=== PATIENT | female | born 1975 | race Caucasian/White ===

== ENCOUNTER 2018-08-23 09:57 | Inpatient (IN) ==
[2018-08-23] MEDS ORDERED: KETOROLAC 15 MG/1 ML VIAL IVP ONE (10:16)
[2018-08-23] MEDS ORDERED: ONDANSETRON 4 MG/2 ML VIAL IVP ONE (10:16)
[2018-08-23] MEDS ORDERED: Sodium Chloride 0.9% 1,000 ML PRIMARY IV ONE (10:16)
--- NOTE | 2018-08-23 10:40 | PDOC ---
General Adult HPI - General Chief Complaint: Chest Pain Stated Complaint: chest pain Date Seen by Provider: 08/23/18 Time Seen by Provider: 10:10 Source: POSITIVE: Patient Exam Limitations: POSITIVE: No limitations Nurse's Notes Reviewed & Considered: Yes - History of Present Illness Initial Comment: The patient is a 42-year-old female who presents to the emergency department from the walk-in clinic with complaints of left flank pain and hematuria. She reports that around [place] time she had developed symptoms of painful urination and foul-smelling urine. Over the past several weeks she has had progressively worsening pain in the left flank region. She has continued dysuria and this morning noticed some blood in the urine. She denies any fever although she states that she "never runs a fever when she has infection". The pain over the last day or so has significantly worsened. She denies any current nausea or vomiting. She has had previous complete hysterectomy. She does have some intermittent pain in the lower pelvis as well. The patient reports that she does have a history of atrial fibrillation and is currently off flecinide and Xarelto as per her [employer]. She reports that she is currently having some pain in her chest which is not unusual for her. The pain in her chest is not significantly worsened with taking a deep breath however the pain in the left flank area is worsened with taking a deep breath. Have you received a tetanus shot in the past 10 years?: Yes - Patient Home Medications Home Medications: Home Medications clonazepam 0.5 mg tablet 0.5 mg PO QHS PRN #30 tab 08/12/18 - Patient Allergies Allergies/Adverse Reactions: Allergies Allergy/AdvReac Type Severity Reaction Status Date / Time No Known Drug Allergies Allergy NO KNOWN Verified 08/23/18 10:33 ALLERGIES Past Medical History - heen HEENT History: Denies History Cardiovascular History: Arrhythmia, Other (please comment) Additional Cardiovasular History: CHILDHOOD MURMUR, a fib Respiratory History: Pneumonia, Other (please comment) Additional Respiratory History: BRONCHITIS 05/26 Gastrointestinal History: Irritable Bowel Syndrome, Celiac Disease Additional Gastrointestinal History: CELIAC DISEASE, ULCERS. Genitourinary History: Recurrent UTI Additional Genitourinary History: 12/05/12 CURRENTLY BEING TX'D FOR UTI Endocrine History: Gestational Diabetes, Other (please comment) Additional Endocrine History: INSULIN RESISTANCE Musculoskeletal History: Other (please comment) Prosthesis or Implant: No Additional Musculoskeletal History: L FOOT FRACTURE, BILATERAL LOWER LEG FRACTURES BELOW THE KNEE OCTOBER 2015 Neurological History: Migraines, Frequent Headaches Additional Neurological History: LEFT OCCIPITAL BLOCK FOR MIGRAINE, MEDISTEINAL MASS DX 03/2014 Blood Disorders: Denies History Psychiatric History: Depression, Anxiety Disorders, PTSD History of Sexually Transmitted Diseases: No Cancer History: Denies History History of MDRO: No History of Other Communicable Diseases: No History of Exposure to Communicable Disease: No Alcohol Use: Other In the Past 12 Months, Have Used or Abuse Any Substance: Marijuana Previous Surgical History: Yes Type / Date of Surgery: as above (SALEEM/BSO). lymph node biopsy left posterior cervical area. Colonoscopy/EGD 10/2011. TONSILLECTOMY, ADENOIDECTOMY, LEFT LUMPECTOMY Anesthesia Reactions: No Malignant Hyperthermia: No Significant Family History: Cancer Past Medical History Reviewed: Reviewed - No Changes ROS - Limitations ROS Limitations: No Limitations Constitution: REPORTS: Chills. DENIES: Fever Cardiovascular: REPORTS: Chest Pain (She reports intermittent chest pain chronically and does have some pain currently). DENIES: Heart Palpitations, Edema Respiratory: REPORTS: Hurts To Breathe (Primarily in the left flank region). DENIES: Cough Non Productive, Cough Productive, Shortness Of Breath Neurological: REPORTS: Denies Neuro Symptoms Gastrointestinal: DENIES: Vomitting Musculoskeletal: DENIES: Lower Extremity Swelling Genitourinary: REPORTS: Dysuria, Flank Pain (Left flank pain), Hematuria Eyes: REPORTS: Denies Symptoms ENT: REPORTS: Denies Symptoms Skin: DENIES: Rash General Adult Exam - General Appearance General Appearance: POSITIVE: Alert, Cooperative, No Acute Distress - HEENT HEENT: POSITIVE: Head Inspection Nml, Eyes Inspection Nml, Ears Inspection Nml, Nose Inspection Nml, Pharynx Inspect. Nml - Neck Neck: POSITIVE: Normal Inspection. NEGATIVE: Lymphadenopathy - Respiratory Respiratory: POSITIVE: No Respiratory Distress, Breath Sounds Normal - Cardiovascular Cardiovascular: POSITIVE: Regular Rate & Rhythm, No Murmur Peripheral Pulses: Dorsalis-pedis (R): 2+, Dorsalis-pedis (L): 2+ - Abdomen Abdomen: Soft: (All Quadrants), Denies Tenderness: (All Quadrants), No Palpabale Mass: (All Quadrants) - Back Back: POSITIVE: CVA Tenderness (Left side) - Skin Skin: POSITIVE: Normal Color, No Rash - Extremities Extremity: Normal ROM: (All Extremities), Normal Inspection: (All Extremities) General Adult Progress - Results Reviewed by me Xrays/CTs/US Reviewed by me: Yes Discussed with Radiologist: Yes Radiology Findings: CT of the abdomen and pelvis without IV contrast shows no obstructive uropathy or kidney stone per radiologist. Chest x-ray is also read as normal per radiologist. Lab Results Reviewed by Me: Yes Lab Results:: Laboratory Results 08/23/18 08/23/18 08/23/18 10:25 10:25 10:25 WBC 15.19 H RBC 4.90 Hgb 14.2 Hct 42.1 MCV 85.9 MCH 29.0 MCHC 33.7 RDW Std Deviation 44.6 RDW Coeff of Fadi 14.4 Plt Count 328 MPV 10.9 Immature Gran % (Auto) 0.1 Neut % (Auto) 85.9 H Lymph % (Auto) 9.9 L [place] % (Auto) 3.8 L Eos % (Auto) 0.1 Baso % (Auto) 0.2 Immature Gran # (Auto) 0.02 Neut # (Auto) 13.05 Lymph # (Auto) 1.51 [place] # (Auto) 0.57 Eos # (Auto) 0.01 Baso # (Auto) 0.03 WBC Morphology Comment Normal morphology Plt Morphology Comment Normal morphology RBC Morph Comment Normal morphology D-Dimer 0.26 Sodium 142 Potassium 3.9 Chloride 108 Carbon Dioxide 23 Anion Gap 11 BUN 13 Creatinine 0.6 Estimated GFR > 60 BUN/Creatinine Ratio 21.66 H Glucose 94 Calculated Osmolality 293.0 H Lactic Acid Calcium 9.5 Total Bilirubin 0.7 AST 21 ALT 29 Alkaline Phosphatase 65 CK-MB (CK-2) Troponin I C-Reactive Protein 0.7 Total Protein 7.4 Albumin 4.7 Globulin 2.7 Albumin/Globulin Ratio 1.70 08/23/18 08/23/18 10:25 10:25 WBC RBC Hgb Hct MCV MCH MCHC RDW Std Deviation RDW Coeff of Fadi Plt Count MPV Immature Gran % (Auto) Neut % (Auto) Lymph % (Auto) [place] % (Auto) Eos % (Auto) Baso % (Auto) Immature Gran # (Auto) Neut # (Auto) Lymph # (Auto) [place] # (Auto) Eos # (Auto) Baso # (Auto) WBC Morphology Comment Plt Morphology Comment RBC Morph Comment D-Dimer Sodium Potassium Chloride Carbon Dioxide Anion Gap BUN Creatinine Estimated GFR BUN/Creatinine Ratio Glucose Calculated Osmolality Lactic Acid 1.1 Calcium Total Bilirubin AST ALT Alkaline Phosphatase CK-MB (CK-2) 0.47 Troponin I < 0.012 C-Reactive Protein Total Protein Albumin Globulin Albumin/Globulin Ratio CBC and BMP: 08/23/18 10:25 08/23/18 10:25 - Patient's Progress MDM / ED Course: The urine dip from the clinic did show large leukocytes and large blood. Microscopic evaluation here reveals greater than 100 PVCs and greater than 100 RBCs in the urine. The patient is rating her pain an 8 out of 10 primarily in the left flank region. Because of her complaint of chest pain and EKG was done which shows normal sinus rhythm with no acute ST segment or T-wave changes. She states that it is not uncommon for her to have chest pain which has been ongoing for quite some time. An IV was established, blood cultures and lactate were drawn with IV start. She did receive a 1 L bolus of normal saline as well as Toradol 15 mg IV, fentanyl 50 g IV and Zofran 4 mg IV for pain. She initially had some minimal pain relief however had recurrence of pain and required a second dose of fentanyl. At that point she rated her pain about a 5 out of 10. Her blood work reveals an elevated white count at 15,000. The remainder of her blood work is essentially unremarkable. She has normal troponin and normal d- dimer. Chest x-ray showed normal heart size and normal lung queen. CT scan of the abdomen and pelvis without IV contrast showed no obstructive uropathy or kidney stone. She did receive a dose of Rocephin 1 g IV. Current findings were discussed with the patient. Treatment options were discussed including outpatient versus inpatient management. At this time the patient was concerned about absorbing medications orally which she has had problems with with in the p ast and she would prefer to at least initially be treated in the hospital. I subsequently spoke with Dr. Kim and he has agreed to admit the patient for further treatment. - Consult Counseled: POSITIVE: Patient, Family, RE: Lab Results, RE: Radiology Results, R E: DX Patient Care Time - Estimated PCT Patient Care Time (In Minutes): 30 Vital Signs - Recent Vital Signs Vital Signs: Vital Signs (Last 8 hours) Temp Pulse Pulse Resp BP Pulse Ox 08/23/18 10:35 98 F 103 H 103 H 18 148/112 98 - VS Reviewed Vital Signs Reviewed: Yes Discharge Clinical Impression: Chest pain, Pyelonephritis Discharge Disposition: Admit to Inpatient Condition: Stable Follow Up With: ALLIE OLSEN [Primary Care Provider] - Date Decision to Admit to Inpatient: 08/23/18 Time Decision to Admit to Inpatient: 12:50
[2018-08-23] MEDS: fentaNYL Inj 100 MCG/2 ML VIAL IVP ONE ×2 (10:56→12:00)
[2018-08-23 10:58] LABS: BASOPHILS # (AUTO) 0.03 10*3/UL; BASOPHILS % (AUTO) 0.2 % (0-1); EOSINOPHILS # (AUTO) 0.01 10*3/UL; EOSINOPHILS % (AUTO) 0.1 % (0-8); Hematocrit [HCT] 42.1 % (37.0-47.0); Hemoglobin [HGB] 14.2 g/dL (12.0-16.0); LYMPHOCYTES # (AUTO) 1.51 10*3/uL; MEAN CORPUSCULAR HGB CONC 33.7 g/dL (33-37); MEAN CORPUSCULAR VOLUME 85.9 FL (81-99); MEAN PLATELET VOLUME 10.9 FL (7.4-12.2); MONOCYTES # (AUTO) 0.57 10*3/UL (0.3-0.8); MONOCYTES % (AUTO) 3.8 % (5-15); NEUTROPHILS # (AUTO) 13.05 10*3/UL; NEUTROPHILS % (AUTO) 85.9 % (50-80)
[2018-08-23 11:06] LABS: BLOOD UREA NITROGEN 13 mg/dL (7-22); BUN/CREATININE RATIO 21.66 (6-20); SERUM ALBUMIN 4.7 g/dL (3.5-4.8)
[2018-08-23 11:13] LABS: PLATELET MORPHOLOGY COMMENT NORMAL MORPHOLOGY (NORM); RBC MORPHOLOGY COMMENT NORMAL MORPHOLOGY (NORM); WBC MORPHOLOGY COMMENT NORMAL MORPHOLOGY (NORM)
--- NOTE | 2018-08-23 11:16 | DI ---
XR CXR 1VW 08/23/2018 10:16 AM HISTORY: [facility] [place] ^Chest Pain Comparison: 06/25/2018. Findings: A single AP view of the chest demonstrates normal aeration without focal consolidation. The re is no pneumothorax or pleural effusion. The cardiomediastinal silhouette is normal in size and con tour. The osseous structures are normal for age. Impression: No radiographic evidence of acute cardiopulmonary process.
[2018-08-23] MEDS ORDERED: cefTRIAXone Inj 1 GM in Sodium Chloride 0.9% 100 ML IV ONE (11:40)
[2018-08-23] MEDS ORDERED: fentaNYL Inj 100 MCG/2 ML VIAL IVP ONE (11:47)
--- NOTE | 2018-08-23 12:13 | DI ---
CT Abdomen/Pelvis WO Contrast 08/23/2018 11:12 AM [place] [facility] [place] pain and hematuria Comparison: CT abdomen/pelvis 07/04/2018. Technique: Imaging was performed with a multi-detector CT scanner. Data acquisition was obtained from the dome of the diaphragm through the pubic symphysis without oral or intravenous contrast material. Multiplanar reformations were performed. Findings: There are no renal, ureteral, or bladder stones identified. No hydronephrosis or perinephri c stranding. An indistinct hypoattenuating lesion in the posterior aspect of the right lobe of the liver was demetria r demonstrated on prior contrast-enhanced imaging. Further evaluation of the abdomen shows normal CT appearance of the visualized portions of the spleen, gallbladder, adrenal glands, and pancreas. Hollo w viscus organs demonstrate normal course and caliber. The appendix is unremarkable. Vascular structu res are intact. The uterus is absent. The adnexa are unremarkable, though better evaluated with pelvi c ultrasound. There is no free intraperitoneal air or fluid. The lung bases are clear. The osseous structures are within normal limits for age. Impression: 1. No urolithiasis or CT evidence of obstructive uropathy.
[2018-08-23 13:27] LABS: AMPHETAMINE SCREEN NEGATIVE (NEG); CANNABINOID SCREEN,URINE POSITIVE (NEG); COCAINE SCREEN NEGATIVE (NEG); METHADONE URINE SCREEN NEGATIVE (NEG); METHAMPHETAMINES SCREEN,URINE NEGATIVE (NEG); OPIATE SCREEN,URINE NEGATIVE (NEG); URINE SAMPLE TYPE UCC; URINE SPECIFIC GRAVITY - MAN 1.008
[2018-08-23] MEDS ORDERED: ACETAMINOPHEN 325 MG TABLET PO PRN (13:30)
[2018-08-23] MEDS ORDERED: ONDANSETRON 4 MG/2 ML VIAL IVP PRN (13:30)
[2018-08-23] MEDS ORDERED: DOCUSATE 100 MG CAPSULE PO PRN (13:30)
[2018-08-23] MEDS ORDERED: LIDOCAINE W/ SODIUM BICARB 0.5 ML SYR SUBD PRN (13:30)
[2018-08-23] MEDS ORDERED: CALCIUM CARBONATE 500 MG (TUMS) CHEWABLE TABLET PO PRN (13:30)
[2018-08-23] MEDS: Sodium Chloride 0.9% 1,000 ML PRIMARY IV SCH ×2 (14:13→22:12)
--- NOTE | 2018-08-23 14:38 | PDOC ---
HPI - History of Present Illness Date of Service: 08/23/18 Time of Service: 14:32 Chief Complaint: Left flank pain and blood in urine History of Present Illness: This very pleasant 42-year-old female who has had prior urinary tract infections due to Escherichia coli, anxiety disorder, and apparently osteoporosis, who comes in stating that she's had left flank pain for about a month now. Just after [place], she saw her primary care physician and at that time she had a urinalysis that was negative in the clinic. She states that she's been on antibiotics such as penicillin for a recent tooth infection but has made no change in her left flank pain. She states that she has had increased urinary frequency. This morning she had blood in the urine and she came in for evaluation and was found to have a urinalysis consistent with urinary tract infection. A noncontrast CT scan of the abdomen and pelvis was negative per radiology read. No evidence of obstructive uropathy was noted. She states the pain in her left flank has been radiating into her groin region on the left side. She has never had a kidney stone before. She denies any fevers but states even when she had urosepsis in the past she did not have fever. She denies any vomiting but has had some nausea and states that she has lost her appetite recently. No other interventions of been tried. The condition continually got worse with blood developing in the urine which is why she came in for evaluation today. A urinalysis was done at the clinic and the patient h ad positive findings for hematuria, pyuria, and bacteria present. Past Medical History Medical History: 1. Admits to smoking marijuana. 2. Intermittent atrial fibrillation diagnosed in [place], was on flecainide and Xarelto, following cardiology here and off medications pending evaluation. 3. Osteoporosis. 4. Anxiety disorder Surgical History: 1. hysterectomy with bilateral salpingo-oophorectomy. 2. Breast lumpectomy, benign. 3. Lymph node biopsy Pertinent Family History: Significant for coronary artery disease on the mother's side of the family Past Social History: Does not smoke tobacco, does smoke marijuana. Does not drink alcohol. . Has 2 children that are described as healthy. Tobacco Use: Never Smoker Do you dip or chew tobacco: No In the Past 12 Months, Have Used or Abuse Any of the Following Substance: Marijuana Alcohol Use: None Medication / Allergies Home Medications: Home Medications Medication Instructions Recorded Confirmed Type clonazepam 0.5 mg tablet 0.5 mg PO QHS PRN #30 tab 08/12/18 08/23/18 Rx Allergies/Adverse Reactions: Allergies Allergy/AdvReac Type Severity Reaction Status Date / Time No Known Drug Allergies Allergy NO KNOWN Verified 08/23/18 10:33 ALLERGIES Review of Systems - Review of Systems All Systems: Reviewed & No Additional Complaints Except as Stated (I did a 12 point review systems and it was negative other than that discussed below and in the history of present illness.) - Constitutional Constitutional: REPORTS: Other (Decreased appetite) - Gastrointestinal Gastrointestinal / Abdominal: REPORTS: Nausea - Genitourinary Genitourinary: REPORTS: Burning, Hematuria, Urgency - Musculoskeletal Musculoskeletal: REPORTS: Other (States she has osteoporosis and is on vitamin D and is been on Fosamax in the past although she is off of that now. She also states that she tripped over her dog bone recently and has right foot and right ankle pain, ankle pain is lateral. And anterior.) Exam - Vitals Vital Signs: Vital Signs Temperature 98 F Temperature Source Temporal Artery Scan Pulse Rate [Bilateral Radial] 103 Pulse Rate 103 Respiratory Rate 16 Blood Pressure [Left Arm] 148/112 Pulse Ox 97 Oxygen Delivery Method Room Air Height 5 ft 6 in Weight 115 lb 2 oz - General General Appearance: No Acute Distress, Cooperative, Thin - Head Head Exam: Normal Inspection, Normocephalic, Atraumatic - Eye Eye Exam: POSITIVE: No Scleral Icterus - ENT ENT Exam: POSITIVE: Mucous Membranes Moist - Neck Neck Exam: Normal Inspection, No Tenderness, No Lymphadenopathy, No Thyromegaly, JVP is not Raised - Respiratory Respiratory Exam: POSITIVE: Clear to Auscultation - Bilaterally, Breathing Non Labored, Normal to Percussion and Palpation - Cardiovascular Cardiovascular Exam: POSITIVE: No Murmur, No Clicks, No Gallops, No Rubs, Tachycardia, No JVD - GI/Abdominal GI/Abdominal Exam: POSITIVE: Normal Bowel Sounds, Non Tender, Non Distended, Soft - Rectal Rectal Exam: POSITIVE: Deferred - External Exam: POSITIVE: Deferred Exam: POSITIVE: Deferred - Extremities Extremities Exam: POSITIVE: No Clubbing Present, No Edema Present, No Cyanosis Present - Back Back Exam: POSITIVE: CVA Tenderness (L) - Neurological Neurological Exam: POSITIVE: Alert, Oriented x 3, No Facial Droop, Speech Intact / Clear, Moves All Extremities Equally - Psychiatric Psychiatric Exam: POSITIVE: Normal Affect, Normal Mood Results - Labs CBC and BMP: 08/23/18 10:25 08/23/18 10:25 Additional Lab Results: Laboratory Results 08/23/18 08/23/18 08/23/18 10:00 10:25 10:25 WBC 15.19 H RBC 4.90 Hgb 14.2 Hct 42.1 MCV 85.9 MCH 29.0 MCHC 33.7 RDW Std Deviation 44.6 RDW Coeff of Fadi 14.4 Plt Count 328 MPV 10.9 Immature Gran % (Auto) 0.1 Neut % (Auto) 85.9 H Lymph % (Auto) 9.9 L [place] % (Auto) 3.8 L Eos % (Auto) 0.1 Baso % (Auto) 0.2 Immature Gran # (Auto) 0.02 Neut # (Auto) 13.05 Lymph # (Auto) 1.51 [place] # (Auto) 0.57 Eos # (Auto) 0.01 Baso # (Auto) 0.03 WBC Morphology Comment Normal morphology Plt Morphology Comment Normal morphology RBC Morph Comment Normal morphology D-Dimer 0.26 Sodium Potassium Chloride Carbon Dioxide Anion Gap BUN Creatinine Estimated GFR BUN/Creatinine Ratio Glucose Calculated Osmolality Lactic Acid Calcium Total Bilirubin AST ALT Alkaline Phosphatase CK-MB (CK-2) Troponin I C-Reactive Protein Total Protein Albumin Globulin Albumin/Globulin Ratio Ur Collection Type Ucc U Specif Grav (Refrac) 1.008 Urine Opiates Screen Negative Ur Buprenorphine Negative Ur Oxycodone Screen Negative Urine Methadone Screen Negative Ur Propoxyphene Screen Negative Barbiturate Screen Negative U Tricyclic Antidepress Negative Phencyclidine Screen Negative Amphetamines Screen Negative U Methamphetamines Scrn Negative Benzodiazepines Screen Negative Cocaine Screen Negative U Marijuana (THC) Screen Positive H 3 08/23/18 08/23/18 08/23/18 10:25 10:25 10:25 WBC RBC Hgb Hct MCV MCH MCHC RDW Std Deviation RDW Coeff of Fadi Plt Count MPV Immature Gran % (Auto) Neut % (Auto) Lymph % (Auto) [place] % (Auto) Eos % (Auto) Baso % (Auto) Immature Gran # (Auto) Neut # (Auto) Lymph # (Auto) [place] # (Auto) Eos # (Auto) Baso # (Auto) WBC Morphology Comment Plt Morphology Comment RBC Morph Comment D-Dimer Sodium 142 Potassium 3.9 Chloride 108 Carbon Dioxide 23 Anion Gap 11 BUN 13 Creatinine 0.6 Estimated GFR > 60 BUN/Creatinine Ratio 21.66 H Glucose 94 Calculated Osmolality 293.0 H Lactic Acid 1.1 Calcium 9.5 Total Bilirubin 0.7 AST 21 ALT 29 Alkaline Phosphatase 65 CK-MB (CK-2) 0.47 Troponin I < 0.012 C-Reactive Protein 0.7 Total Protein 7.4 Albumin 4.7 Globulin 2.7 Albumin/Globulin Ratio 1.70 Ur Collection Type U Specif Grav (Refrac) Urine Opiates Screen Ur Buprenorphine Ur Oxycodone Screen Urine Methadone Screen Ur Propoxyphene Screen Barbiturate Screen U Tricyclic Antidepress Phencyclidine Screen Amphetamines Screen U Methamphetamines Scrn Benzodiazepines Screen Cocaine Screen U Marijuana (THC) Screen 06/29/16 08/23/18 08/23/18 10:59 09:51 10:00 Urine Ketones Trace Urine Occult Blood Large Urine Nitrate Negative Ur Leukocyte Esterase Large Urine RBC >100 A Urine WBC >100 H Urine Bacteria Many H Ur Culture Indicated? Culture set - Imaging Status: Image Reviewed by Me (I looked at the chest x-ray and it appears negative on my view for acute cardiac pulmonary disease process. I looked at the abdominal CT scan. I felt the left kidney was slightly enlarged versus the right. No IV contrast was used so I cannot see any perinephric stranding.) Assessment and Plan - Patient Problems (1) Pyelonephritis Current Visit: Yes Status: Acute Code(s): N12 - Tubulo-interstitial nephritis, not specified as acute or chronic (2) Acute cystitis Current Visit: Yes Status: Acute Code(s): N30.00 - Acute cystitis without hematuria Qualifiers: Hematuria presence: with hematuria Qualified Code(s): N30.01 - Acute cystitis with hematuria (3) Poor appetite Current Visit: No Status: Chronic Code(s): R63.0 - Anorexia (4) Marijuana abuse Current Visit: Yes Status: Acute Code(s): F12.10 - Cannabis abuse, unc omplicated - Assessment / Plan Additional Assessment/Plan Details: admit for observation IV fluids, IV rocephin urine culture pending labs in AM pain medicines for left flank pain antiemetics when necessary Given right foot pain, and recent trip over her dog bone at home, x-ray right foot and right ankle. She isolates her pain on her right foot and right ankle Full code. Plan above discussed with patient and [id number]. They all agree with the plan.
--- NOTE | 2018-08-23 15:08 | DI ---
XR ANKLE 2VW 08/23/2018 2:31 PM H[place]ORY: [facility] [place] ankle pain Comparison: None. Findings: AP and lateral views of the right ankle show normal anatomic alignment without fracture or dislocation. The ankle mortise and talar dome are intact. No significant arthritic change is detected . There is no significant soft tissue swelling. No ankle joint effusion is present. Impression: No acute osseous abnormality or significant arthritic change.
--- NOTE | 2018-08-23 15:09 | DI ---
XR FOOT 2VW 08/23/2018 2:31 PM HISTORY: [facility] – [place] ^right foot pain Comparison: None. Findings: AP, lateral, and oblique views of the right foot show normal anatomic alignment without fra cture or dislocation. There is no significant arthritic change. The soft tissue structures are unrem arkable. Impression: 1. No acute osseous abnormality or significant arthritic change.
[2018-08-23] MEDS ORDERED: ClonazePAM Tab 1 MG TABLET PO PRN (15:30)
[2018-08-23] MEDS: HYDROmorphone 2 MG/1 ML IVP PRN ×3 (16:24→22:15)
[2018-08-23] MEDS: KETOROLAC 15 MG/1 ML VIAL IVP PRN (17:48)
[2018-08-23] MEDS: HYDROcodone-APAP 5 MG -325 MG TABLET PO PRN (22:11)
[2018-08-24] MEDS: KETOROLAC 15 MG/1 ML VIAL IVP PRN (00:33)
[2018-08-24 04:56] LABS: BASOPHILS # (AUTO) 0.03 10*3/UL; BASOPHILS % (AUTO) 0.4 % (0-1); EOSINOPHILS # (AUTO) 0.18 10*3/UL; EOSINOPHILS % (AUTO) 2.1 % (0-8); Hematocrit [HCT] 34.3 % (37.0-47.0); Hemoglobin [HGB] 11.3 g/dL (12.0-16.0); LYMPHOCYTES # (AUTO) 3.14 10*3/uL; MEAN CORPUSCULAR HEMOGLOBIN 28.6 PG (27-31); MEAN CORPUSCULAR HGB CONC 32.9 g/dL (33-37); MEAN CORPUSCULAR VOLUME 86.8 FL (81-99); MEAN PLATELET VOLUME 10.7 FL (7.4-12.2); MONOCYTES # (AUTO) 0.53 10*3/UL (0.3-0.8); MONOCYTES % (AUTO) 6.3 % (5-15); NEUTROPHILS # (AUTO) 4.48 10*3/UL; NEUTROPHILS % (AUTO) 53.5 % (50-80); RED BLOOD COUNT 3.95 10^6/uL (4.20-5.40)
[2018-08-24] MEDS: HYDROmorphone 2 MG/1 ML IVP PRN ×2 (05:05→09:16)
[2018-08-24] MEDS: Sodium Chloride 0.9% 1,000 ML PRIMARY IV SCH ×3 (05:08→23:06)
[2018-08-24 05:14] LABS: BLOOD UREA NITROGEN 6 mg/dL (7-22)
[2018-08-24 05:42] LABS: PLATELET MORPHOLOGY COMMENT NORMAL MORPHOLOGY (NORM); RBC MORPHOLOGY COMMENT NORMAL MORPHOLOGY (NORM); WBC MORPHOLOGY COMMENT NORMAL MORPHOLOGY (NORM)
[2018-08-24] MEDS: HYDROcodone-APAP 5 MG -325 MG TABLET PO PRN (07:43)
[2018-08-24] MEDS ORDERED: oxyCODONE/APAP 7.5/325 Tab 1 TAB TAB PO PRN (10:54)
[2018-08-24] MEDS ORDERED: HYDROmorphone 2 MG/1 ML IVP PRN ×2 (10:55→11:13)
[2018-08-24] MEDS: cefTRIAXone Inj 2 GM in Sodium Chloride 0.9% 100 ML IV SCH (12:06)
[2018-08-24] MEDS: Prochlorperazine Edisylate Inj 10mg/2ml vial IVP PRN ×2 (12:07→18:45)
[2018-08-24] MEDS: oxyCODONE/APAP 7.5/325 Tab 1 TAB TAB PO PRN ×2 (12:07→18:45)
--- NOTE | 2018-08-24 15:43 | PDOC(PROG) ---
Date of Service: 08/24/18 Time of Service: 09:00 Interval History: still has left flank pain, but better. worsened nausea and vomiting. no chest pain, no SOB. initially lab is showing gram negative rods. Objective : Data - Labs CBC and BMP: 08/24/18 04:30 08/24/18 04:30 Assessment and Plan - Patient Problems (1) Pyelonephritis Current Visit: Yes Status: Acute Code(s): N12 - Tubulo-interstitial nephrit is, not specified as acute or chronic (2) Acute cystitis Current Visit: Yes Status: Acute Code(s): N30.00 - Acute cystitis without hematuria Qualifiers: Hematuria presence: with hematuria Qualified Code(s): N30.01 - Acute cystitis with hematuria (3) Marijuana abuse Current Visit: Yes Status: Acute Code(s): F12.10 - Cannabis abuse, uncomplicated - Assessment / Plan Additional Assessment/Plan Details: continue rocephin, IV, day #2. would like to keep IV antibiotics until flank pain is resolved with nausea and vomiting, they patient will not be able to tolerate PO antibiotics and needs IV antibiotics and IV fluids labs in AM still awaiting cultures. spoke with lab and the results on final ID and sensitivities by AM
[2018-08-25] MEDS: oxyCODONE/APAP 7.5/325 Tab 1 TAB TAB PO PRN (05:10)
[2018-08-25 07:03] LABS: BASOPHILS # (AUTO) 0.04 10*3/UL; BASOPHILS % (AUTO) 0.7 % (0-1); EOSINOPHILS # (AUTO) 0.16 10*3/UL; EOSINOPHILS % (AUTO) 2.8 % (0-8); Hematocrit [HCT] 35.4 % (37.0-47.0); Hemoglobin [HGB] 11.7 g/dL (12.0-16.0); LYMPHOCYTES # (AUTO) 1.67 10*3/uL; MEAN CORPUSCULAR HGB CONC 33.1 g/dL (33-37); MEAN CORPUSCULAR VOLUME 87.8 FL (81-99); MEAN PLATELET VOLUME 10.4 FL (7.4-12.2); MONOCYTES # (AUTO) 0.37 10*3/UL (0.3-0.8); MONOCYTES % (AUTO) 6.4 % (5-15); NEUTROPHILS # (AUTO) 3.55 10*3/UL; NEUTROPHILS % (AUTO) 61.1 % (50-80); RED BLOOD COUNT 4.03 10^6/uL (4.20-5.40)
[2018-08-25 07:07] LABS: PLATELET MORPHOLOGY COMMENT NORMAL MORPHOLOGY (NORM); RBC MORPHOLOGY COMMENT NORMAL MORPHOLOGY (NORM); WBC MORPHOLOGY COMMENT NORMAL MORPHOLOGY (NORM)
[2018-08-25 07:21] VITALS: RESP 17; O2SAT 97
[2018-08-25] MEDS: Sodium Chloride 0.9% 1,000 ML PRIMARY IV SCH (08:38)
[2018-08-25 11:18] VITALS: BP 140/87; TEMP 97.2
[2018-08-25] MEDS: cefTRIAXone Inj 2 GM in Sodium Chloride 0.9% 100 ML IV SCH (13:06)
--- NOTE | 2018-08-25 14:38 | DCSUMMARY ---
Hospitalization Summary Admit Date: 08/23/2017 Discharge Date: 08/25/18 Primary Diagnosis:: left-sided pyelonephritis, secondary to Escherichia coli Hospital Course: This very pleasant 42-year-old female who came in with intermittent flank pain over the last month, and now symptoms consistent with urinary tract infection and worsening flank pain. She also had nausea and vomiting. She was found to have an Escherichia coli urinary tract infection and physical exam was consistent with pyelonephritis. Although the CT scan was read as normal with no evidence of hydronephrosis, I thought the left kidney looked a little larger than I would've expected. The patient was admitted, placed on IV fluids, antiemetics, pain medications, and Rocephin. Through the course of the hospital stay, the flank pain markedly reduced by over 90%, the patient is now tolerating by mouth intake today for the first day and she states today that she feels like she is ready to go home and that she feels she can tolerate by mouth intake. We discussed potential anabolic regimens including fluoroquinolones but the patient does not want to take the risk of potential tendinopathy so we will go with Augmentin for another 10 days of therapy. Assessment and Plan: 1. As per discharge assessments noted 2. Disposition: Patient is discharged home. 3. Condition on discharge, stable and improved. 4. Diet: regular diet 5. Activities: resume normal activities 6. Follow-Up: 1. Dr. Clark next week 2. 7. Medications at the Time of Discharge: Home Medications Medication Instructions Recorded Confirmed Type clonazepam 0.5 mg tablet 0.5 mg PO QHS PRN #30 tab 08/12/18 08/23/18 Rx Amoxicillin/Potassium Clav 1 ea PO BID #20 tab 08/25/18 Rx [Augmentin 875-125 Tablet] oxyCODONE/APAP 7.5/325 Tab 1 - 2 tab PO Q4H PRN #20 tab 08/25/18 Rx [Percocet 7.5/325 Tab] 8. Time, care, counseling and coordination of care for this discharge is less than 30 minutes. Exam - Vitals Vital Signs: Vital Signs Temperature 97.2 F Temperature Source Temporal Artery Scan Pulse Rate [Apical] 60 Pulse Rate [Pulse Oximeter] 51 Pulse Rate [Bilateral Radial] 103 Pulse Rate 48 Respiratory Rate 17 Blood Pressure [Left Arm] 140/87 Pulse Ox 97 Oxygen Flow Rate 1 Oxygen Delivery Method Room Air Height 5 ft 6 in Weight 116 lb 3.2 oz - General General Appearance: No Acute Distress, Cooperative - Head Head Exam: Normal Inspection, Normocephalic, Atraumatic - Eye Eye Exam: POSITIVE: No Scleral Icterus - ENT ENT Exam: POSITIVE: Mucous Membranes Moist - Neck Neck Exam: JVP is not Raised - Respiratory Respiratory Exam: POSITIVE: Clear to Auscultation - Bilaterally, Breathing Non Labored - Cardiovascular Cardiovascular Exam: POSITIVE: No Murmur, No Clicks, No Gallops, No Rubs, Bradycardia (Bradycardia is not symptomatic), No JVD - GI/Abdominal GI/Abdominal Exam: POSITIVE: Normal Bowel Sounds, Non Tender, Non Distended, Soft - Extremities Extremities Exam: POSITIVE: No Clubbing Present, No Edema Present, No Cyanosis Present - Back Back Exam: POSITIVE: CVA Tenderness (L) (Reduced from admission) - Neurological Neurological Exam: POSITIVE: Alert, Oriented x 3, No Facial Droop, Speech Intact / Clear, Moves All Extremities Equally - Psychiatric Psychiatric Exam: POSITIVE: Normal Affect, Normal Mood Data Peritnent Studies: 08/23/18 08/23/18 08/23/18 10:25 10:25 10:25 WBC Hgb Hct Plt Count Sodium Potassium Chloride Carbon Dioxide Anion Gap BUN Creatinine Estimated GFR BUN/Creatinine Ratio Glucose Calculated Osmolality Lactic Acid 1.1 Calcium Total Bilirubin 0.7 AST 21 ALT 29 Alkaline Phosphatase 65 CK-MB (CK-2) 0.47 Troponin I < 0.012 C-Reactive Protein 0.7 Total Protein 7.4 Albumin 4.7 Globulin 2.7 Albumin/Globulin Ratio 1.70 08/24/18 08/25/18 04:30 07:00 WBC 5.80 Hgb 11.7 L Hct 35.4 L Plt Count 273 Sodium 139 Potassium 3.9 Chloride 111 Carbon Dioxide 23 Anion Gap 5 BUN 6 L Creatinine 0.5 Estimated GFR > 60 BUN/Creatinine Ratio 12.00 Glucose 82 Calculated Osmolality 284.0 Lactic Acid Calcium 8.3 L Total Bilirubin AST ALT Alkaline Phosphatase CK-MB (CK-2) Troponin I C-Reactive Protein Total Protein Albumin Globulin Albumin/Globulin Ratio Patient Problems - Patient Problem List (1) Pyelonephritis Current Visit: Yes Status: Acute Code(s): N12 - Tubulo-interstitial nephritis, not specified as acute or chronic Category: Medical (2) Acute cystitis Current Visit: Yes Status: Acute Code(s): N30.00 - Acute cystitis without hematuria Qualifiers: Hematuria presence: with hematuria Qualified Code(s): N30.01 - Acute cystitis with hematuria Category: Medical (3) Marijuana abuse Current Visit: Yes Status: Acute Code(s): F12.10 - Cannabis abuse, uncomplicated Category: Medical
== END 2018-08-25 15:16 | disposition home or self-care (01) | DRG 690 ==
LOC: MED/SURG 09:57 → ER 09:57 → MED/SURG 13:14
PROVIDERS: ADMIT Family Medicine; ATTEND Family Medicine